=== PATIENT | female | born 1980 | race Caucasian/White ===

== ENCOUNTER → 2020-10-09 | Outpatient (CLI) | payer SELFPAY ==
[~2020-10-09] MED LIST: CLARITIN10 MG PO; PROVENTIL0.09 MG/AC IH; ZITHROMAX Z PA250 MG PO
[2020-10-09 14:47] LABS: MEAN CELL VOLUME 77.1 fl (81.0-99.0); MEAN CORPUSCULAR HGB 24.4 pg (27.0-31.0); MEAN CORPUSCULAR HGB CONC 31.7 g/dl (33.0-37.0); MEAN PLATELET VOLUME 10.5 fl (9.6-12.3); RED BLOOD COUNT 5.45 10*6/uL (4.10-5.10); RED CELL DISTRI WIDTH 15.2 % (0-14.5); WHITE BLOOD COUNT 12.6 10*3/uL (4.8-10.8)
[2020-10-09 15:26] LABS: ALBUMIN 3.6 gm/dl (3.1-4.5); ALKALINE PHOSPHATASE 69 U/L (45-117); BUN 14 mg/dl (7-24); CHLORIDE 100 mmol/L (98-107); CHOLESTEROL 200 mg/dL (<200); CREATININE 0.77 mg/dL (0.55-1.02); HDL CHOLESTEROL 46 mg/dl (40-60); LDL CHOLESTEROL 124 mg/dL (9-159); POTASSIUM 3.6 mmol/L (3.5-5.1); SGOT/AST 13 IU/L (3-35); SGPT/ALT 40 U/L (12-78); SODIUM 133 mmol/L (136-145); TOTAL PROTEIN 7.8 gm/dL (6.4-8.2); TRIGLYCERIDES 152 mg/dl (<150); VLDL CHOLESTEROL 30 mg/dL (6-40)
== END | disposition home or self-care (01) ==
LOC: LAB 13:51
PROVIDERS: ATTEND Nurse Practitioner Family
DX: R73.9 Hyperglycemia, unspecified (principal); R53.83 Other fatigue; E66.01 Morbid (severe) obesity due to excess calories

== ENCOUNTER → 2021-01-15 | Outpatient (CLI) | payer BC ==
[2021-01-15 10:14] LABS: HEMATOCRIT 38.7 % (37.0-47.0); MEAN CORPUSCULAR HGB 25.3 pg (27.0-31.0); MEAN CORPUSCULAR HGB CONC 30.5 g/dl (33.0-37.0); RED BLOOD COUNT 4.66 10*6/uL (4.10-5.10); RED CELL DISTRI WIDTH 15.5 % (0-14.5); WHITE BLOOD COUNT 11.9 10*3/uL (4.8-10.8)
[2021-01-15 10:38] LABS: ALBUMIN 3.9 gm/dl (3.1-4.5); ALKALINE PHOSPHATASE 53 U/L (45-117); BUN 20 mg/dl (7-24); CHLORIDE 105 mmol/L (98-107); CHOLESTEROL 207 mg/dL (<200); CREATININE 0.82 mg/dL (0.55-1.02); LDL CHOLESTEROL 134 mg/dL (9-159); POTASSIUM 4.2 mmol/L (3.5-5.1); SGOT/AST 9 IU/L (3-35); SGPT/ALT 36 U/L (12-78); SODIUM 136 mmol/L (136-145); TOTAL PROTEIN 7.2 gm/dL (6.4-8.2); TRIGLYCERIDES 111 mg/dl (<150)
== END | disposition home or self-care (01) ==
LOC: LAB 09:44
PROVIDERS: ATTEND Family Medicine
DX: I10 Essential (primary) hypertension (principal); E78.00 Pure hypercholesterolemia, unspecified; E11.9 Type 2 diabetes mellitus without complications

== ENCOUNTER → 2021-04-07 | Outpatient (CLI) | payer BC ==
[2021-04-07 10:10] LABS: HEMATOCRIT 37.6 % (37.0-47.0); MEAN CELL VOLUME 83.9 fl (81.0-99.0); MEAN CORPUSCULAR HGB 25.7 pg (27.0-31.0); MEAN CORPUSCULAR HGB CONC 30.6 g/dl (33.0-37.0); MEAN PLATELET VOLUME 9.7 fl (9.6-12.3); RED BLOOD COUNT 4.48 10*6/uL (4.10-5.10); RED CELL DISTRI WIDTH 14.1 % (0-14.5); WHITE BLOOD COUNT 11.7 10*3/uL (4.8-10.8)
[2021-04-07 10:44] LABS: ALBUMIN 3.5 gm/dl (3.1-4.5); ALKALINE PHOSPHATASE 49 U/L (45-117); BUN 19 mg/dl (7-24); CHLORIDE 107 mmol/L (98-107); CHOLESTEROL 150 mg/dL (<200); CPK 54 U/L (26-192); CREATININE 0.74 mg/dL (0.55-1.02); LDL CHOLESTEROL 83 mg/dL (9-159); POTASSIUM 4.2 mmol/L (3.5-5.1); SGOT/AST 12 IU/L (3-35); SGPT/ALT 42 U/L (12-78); SODIUM 140 mmol/L (136-145); TOTAL PROTEIN 7.1 gm/dL (6.4-8.2); TRIGLYCERIDES 118 mg/dl (<150)
== END | disposition home or self-care (01) ==
LOC: LAB 09:52
PROVIDERS: ATTEND Family Medicine
DX: I10 Essential (primary) hypertension (principal); E11.9 Type 2 diabetes mellitus without complications; E78.00 Pure hypercholesterolemia, unspecified

== ENCOUNTER → 2021-07-08 | Outpatient (CLI) | payer BC ==
[2021-07-08 11:57] LABS: ALBUMIN 3.2 gm/dl (3.1-4.5); BUN 17 mg/dl (7-24); CHLORIDE 106 mmol/L (98-107); CHOLESTEROL 164 mg/dL (<200); CREATININE 0.67 mg/dL (0.55-1.02); POTASSIUM 4.5 mmol/L (3.5-5.1); SGOT/AST 8 IU/L (3-35); SGPT/ALT 26 U/L (12-78); SODIUM 139 mmol/L (136-145); TRIGLYCERIDES 143 mg/dl (<150)
[2021-07-08 11:59] LABS: ALKALINE PHOSPHATASE 49 U/L (45-117); CPK 39 U/L (26-192); LDL CHOLESTEROL 86 mg/dL (9-159); TOTAL PROTEIN 6.6 gm/dL (6.4-8.2)
== END | disposition home or self-care (01) ==
LOC: LAB 11:12
PROVIDERS: ATTEND Family Medicine
DX: I10 Essential (primary) hypertension (principal); E78.00 Pure hypercholesterolemia, unspecified; E11.9 Type 2 diabetes mellitus without complications

== ENCOUNTER → 2021-07-28 | Outpatient (CLI) | payer BC | END | disposition home or self-care (01) | LOC: MAMMO 13:23 | PROVIDERS: ATTEND Family Medicine | DX: Z12.31 Encounter for screening mammogram for malignant neoplasm of breast (principal) ==

== ENCOUNTER → 2021-10-09 | Outpatient (CLI) | payer BC ==
[2021-10-09 11:28] LABS: HEMATOCRIT 35.8 % (37.0-47.0); MEAN CELL VOLUME 71.7 fl (81.0-99.0); MEAN CORPUSCULAR HGB 21.6 pg (27.0-31.0); MEAN CORPUSCULAR HGB CONC 30.2 g/dl (33.0-37.0); MEAN PLATELET VOLUME 9.6 fl (9.6-12.3); RED BLOOD COUNT 4.99 10*6/uL (4.10-5.10); RED CELL DISTRI WIDTH 15.5 % (0-14.5); WHITE BLOOD COUNT 8.9 10*3/uL (4.8-10.8)
[2021-10-09 11:45] LABS: ALKALINE PHOSPHATASE 45 U/L (45-117); BUN 14 mg/dl (7-24); CHLORIDE 106 mmol/L (98-107); CHOLESTEROL 132 mg/dL (<200); CPK 58 U/L (26-192); CREATININE 0.92 mg/dL (0.55-1.02); LDL CHOLESTEROL 75 mg/dL (9-159); POTASSIUM 4.3 mmol/L (3.5-5.1); SGOT/AST 8 IU/L (3-35); SGPT/ALT 26 U/L (12-78); SODIUM 137 mmol/L (136-145); TOTAL PROTEIN 7.3 gm/dL (6.4-8.2); TRIGLYCERIDES 76 mg/dl (<150)
== END | disposition home or self-care (01) ==
LOC: LAB 10:56
PROVIDERS: ATTEND Family Medicine
DX: I10 Essential (primary) hypertension (principal); E11.9 Type 2 diabetes mellitus without complications; E78.00 Pure hypercholesterolemia, unspecified

== ENCOUNTER → 2022-05-20 | Outpatient (CLI) | payer OTHER ==
[2022-05-20 10:28] LABS: BASO # 0.1 10*3/uL (0.0-0.1); BASO % 0.8 % (0.0-1.0); EOS # 0.1 10*3/uL (0.0-0.4); EOS % 0.5 % (1.0-4.0); HEMATOCRIT 33.5 % (37.0-47.0); LYMPH # 2.6 10*3/uL (1.3-4.4); LYMPH % 23.2 % (27.0-41.0); MEAN CORPUSCULAR HGB CONC 29.6 g/dl (33.0-37.0); MEAN PLATELET VOLUME 9.4 fl (9.6-12.3); MONO # 0.8 10*3/uL (0.1-1.0); NEUT # 7.6 10*3/uL (2.3-7.9); NEUT % 68.1 % (47.0-73.0); PLATELET COUNT AUTOMATED 552 10*3/uL (130-400); RED BLOOD COUNT 4.72 10*6/uL (4.10-5.10); RED CELL DISTRI WIDTH 17.5 % (0-14.5); WHITE BLOOD COUNT 11.2 10*3/uL (4.8-10.8)
[2022-05-20 10:41] LABS: CHOLESTEROL 185 mg/dL (<200); CPK 67 U/L (26-192); LDL CHOLESTEROL 108 mg/dL (9-159); TRIGLYCERIDES 67 mg/dl (<150)
== END | disposition home or self-care (01) ==
LOC: LAB 09:49
PROVIDERS: ATTEND Family Medicine
DX: E11.9 Type 2 diabetes mellitus without complications (principal); I10 Essential (primary) hypertension; E78.00 Pure hypercholesterolemia, unspecified; R53.83 Other fatigue

== ENCOUNTER → 2022-09-07 | Outpatient (CLI) | payer BC ==
[2022-09-07 11:03] LABS: HEMATOCRIT 32.9 % (37.0-47.0); MEAN CELL VOLUME 68.8 fl (81.0-99.0); MEAN CORPUSCULAR HGB 19.5 pg (27.0-31.0); MEAN CORPUSCULAR HGB CONC 28.3 g/dl (33.0-37.0); MEAN PLATELET VOLUME 9.3 fl (9.6-12.3); RED BLOOD COUNT 4.78 10*6/uL (4.10-5.10); RED CELL DISTRI WIDTH 18.4 % (0-14.5); WHITE BLOOD COUNT 9.3 10*3/uL (4.8-10.8)
[2022-09-07 11:44] LABS: ALKALINE PHOSPHATASE 48 U/L (46-116); BUN 21 mg/dl (9-23); CHLORIDE 106 mmol/L (98-107); CHOLESTEROL 182 mg/dL (<200); CPK 47 U/L (34-171); LDL CHOLESTEROL 110 mg/dL (9-159); POTASSIUM 4.5 mmol/L (3.4-5.1); SGPT/ALT 18 U/L (10-49); TOTAL PROTEIN 6.9 gm/dL (6.0-8.0); TRIGLYCERIDES 65 mg/dl (<150)
== END | disposition home or self-care (01) ==
LOC: LAB 10:43
PROVIDERS: ATTEND Family Medicine
DX: E11.9 Type 2 diabetes mellitus without complications (principal); E78.00 Pure hypercholesterolemia, unspecified; I10 Essential (primary) hypertension

== ENCOUNTER → 2023-02-09 | Outpatient (CLI) | payer BC ==
[2023-02-09 13:13] LABS: HEMATOCRIT 33.9 % (37.0-47.0); MEAN CORPUSCULAR HGB CONC 28.3 g/dl (33.0-37.0); MEAN PLATELET VOLUME 9.2 fl (9.6-12.3); RED BLOOD COUNT 5.06 10*6/uL (4.10-5.10); WHITE BLOOD COUNT 13.4 10*3/uL (4.8-10.8)
[2023-02-09 13:42] LABS: VITAMIN D, 25-HYDROXY 33.4 ng/mL (30-100)
[2023-02-09 13:52] LABS: ALKALINE PHOSPHATASE 53 U/L (46-116); BUN 14 mg/dl (9-23); CHLORIDE 101 mmol/L (98-107); CHOLESTEROL 184 mg/dL (<200); CPK 45 U/L (34-171); LDL CHOLESTEROL 101 mg/dL (9-159); POTASSIUM 3.8 mmol/L (3.4-5.1); SGPT/ALT 21 U/L (10-49); TOTAL PROTEIN 7.5 gm/dL (6.0-8.0); TRIGLYCERIDES 95 mg/dl (<150)
== END | disposition home or self-care (01) ==
LOC: LAB 12:24
PROVIDERS: ATTEND Family Medicine
DX: E11.9 Type 2 diabetes mellitus without complications (principal); E78.00 Pure hypercholesterolemia, unspecified; I10 Essential (primary) hypertension; E55.9 Vitamin D deficiency, unspecified; R53.83 Other fatigue